=== PATIENT | female | born 1940 | race Caucasian/White ===

== ENCOUNTER → 2016-07-07 | Outpatient (CLI) | payer MEDICARE, BC | END | disposition home or self-care (01) | LOC: SMMGROBB 07-04 08:32 → EDSTATUS 07-04 09:00 → CFH 10:23 | PROVIDERS: ATTEND Nurse Practitioner Family | DX: B19.20 Unspecified viral hepatitis C without hepatic coma (principal); K76.89 Other specified diseases of liver; Z90.49 Acquired absence of other specified parts of digestive tract | CPT/HCPCS: 76700 ==

== ENCOUNTER 2019-01-21 06:44 | Outpatient (CLI) | payer MEDICARE | END 2019-01-21 23:59 | disposition home or self-care (01) | LOC: CFH 06:44 | PROVIDERS: ATTEND Internal Medicine Cardiovascular Disease | DX: I08.3 Combined rheumatic disorders of mitral, aortic and tricuspid valves (principal); I25.89 Other forms of chronic ischemic heart disease | CPT/HCPCS: 78452; 93017; 93306; A9502 ==

== ENCOUNTER → 2019-05-14 | Outpatient (CLI) | payer MEDICARE | END | disposition home or self-care (01) | LOC: RAD 16:52 | PROVIDERS: ATTEND Nurse Practitioner Primary Care | DX: G31.89 Other specified degenerative diseases of nervous system (principal); J32.9 Chronic sinusitis, unspecified; H91.92 Unspecified hearing loss, left ear | CPT/HCPCS: 70450 ==

== ENCOUNTER → 2019-12-05 | Outpatient (CLI) | payer MEDICARE ==
[~2019-12-05] MED LIST: OMNIPAQUE 350 MG/ML, 100ML BOTTLE ONE
== END | disposition home or self-care (01) ==
LOC: CFH 07:53
PROVIDERS: ATTEND Nurse Practitioner Acute Care
DX: C18.0 Malignant neoplasm of cecum (principal); J43.9 Emphysema, unspecified; R91.8 Other nonspecific abnormal finding of lung field; N85.8 Other specified noninflammatory disorders of uterus; N83.209 Unspecified ovarian cyst, unspecified side; R19.09 Other intra-abdominal and pelvic swelling, mass and lump
CPT/HCPCS: 71260; 74177; Q9967